=== PATIENT | female | born 1945 | race Caucasian/White ===

== ENCOUNTER 2021-02-04 11:37 | Day surgery (SDC) | payer MEDICARE, OTHER ==
[2021-01-30 09:33] LABS: BASOPHILS # (AUTO) 0.1 X10'3 (0-0.2); BASOPHILS % (AUTO) 0.8 % (0-1); EOSINOPHILS # (AUTO) 0.2 X10'3 (0-0.9); EOSINOPHILS % (AUTO) 3.8 % (0-6); HEMATOCRIT 37.1 % (35.0-45.0); HEMOGLOBIN 12.2 g/dl (12.0-16.0); LYMPHOCYTES # (AUTO) 2.1 X10'3 (1.1-4.8); LYMPHOCYTES % (AUTO) 33.5 % (21-51); MEAN CORPUSCULAR HEMOGLOBIN 30.1 PG (27.0-31.0); MEAN CORPUSCULAR HGB CONC 32.9 g/dL (33.0-36.5); MEAN CORPUSCULAR VOLUME 91.5 FL (78-98); MEAN PLATELET VOLUME 8.7 FL (7.4-10.4); MONOCYTES # (AUTO) 0.5 X10'3 (0-0.9); MONOCYTES % (AUTO) 8.5 % (2-12); NEUTROPHILS # (AUTO) 3.3 X10'3 (1.8-7.7); NEUTROPHILS % (AUTO) 53.4 % (42-75); PLATELET COUNT 275 X10'3 (140-440); RED BLOOD COUNT 4.06 X10'6 (4.20-5.60); RED CELL DISTRIBUTION WIDTH 12.9 % (11.5-14.5); WHITE BLOOD COUNT 6.2 X10'3 (4.5-11.0)
[2021-01-30 09:41] LABS: PARTIAL THROMBOPLASTIN TIME 24 SECONDS (22-32)
[2021-01-30 09:44] LABS: ALBUMIN 3.6 G/DL (3.4-5.0); ANION GAP 8 (8-16); BLOOD UREA NITROGEN 30 MG/DL (7-18); BUN/CREATININE RATIO 17.6 (6.6-38.0); CALCIUM 9.4 MG/DL (8.5-10.1); CHLORIDE 106 MMOL/L (99-107); GLUCOSE 105 MG/DL (70-104); SODIUM 141 MMOL/L (135-145); TOTAL CARBON DIOXIDE 26.9 MMOL/L (24-32); eGFR 29 ML/MIN
[~2021-02-04] VITALS: Ht 157.5 cm; Wt 59.7 kg
[2021-02-04] VITALS (9 sets, daily range): BP systolic 131–150; BP diastolic 53–69
[~2021-02-04 11:37] MED LIST: ASPI-611 PO; LACT1CAP64 PO; LORA1TAB PO; LOSA25TA41 PO; METO-395 PO; NIFE30TA8 PO; PANT-47 PO
[2021-02-04] MEDS ORDERED: normal saline 1,000 ML IV SCH (12:00)
[2021-02-04] MEDS ORDERED: diphenhydrAMINE 25mg capsule PO PRN (12:00)
[2021-02-04] MEDS ORDERED: LORazepam 0.5 MG tablet PO PRN (12:00)
[2021-02-04] MEDS ORDERED: VITAMIN D PO (12:11)
[2021-02-04] MEDS ORDERED: ALIR75PE (12:11)
[2021-02-04] MEDS ORDERED: OMEP-50 PO (12:11)
[2021-02-04] MEDS ORDERED: LIDOcaine 1% (10mg/ml)w/preservative injection 20ml MDV ONE (13:53)
[2021-02-04] MEDS ORDERED: verapamil 2.5 mg/ml inj IV ONE (13:53)
[2021-02-04] MEDS ORDERED: fentaNYL/PF 50MCG/1 ML 2ML syringe ONE (13:53)
[2021-02-04] MEDS ORDERED: midazolam 1 mg/ML 2ml injection ONE (13:53)
[2021-02-04] MEDS ORDERED: nitroGLYCERIN-Tridil 50MG/D5W 250 ML IV ONE (13:53)
[2021-02-04] MEDS ORDERED: iohexol 350MG/ML 100ml bottle IV ONE (13:54)
[2021-02-04] MEDS ORDERED: heparin 1,000unit/ml 10ml vial 10 ML ONE (13:54)
[2021-02-04] MEDS ORDERED: ondansetron/PF 4mg/2ml inj IV PRN (15:50)
[2021-02-04] MEDS ORDERED: proCHLORperazine 10 MG/2 ml inj IV PRN (15:50)
[2021-02-04] MEDS ORDERED: OXAZEpam 15mg capsule PO PRN (15:50)
== END 2021-02-04 18:30 | disposition home or self-care (01) ==
LOC: SSTAY O 11:37
PROVIDERS: ATTEND Internal Medicine Interventional Cardiology
DX: R94.39 Abnormal result of other cardiovascular function study (principal); R07.9 Chest pain, unspecified; I25.10 Atherosclerotic heart disease of native coronary artery without angina pectoris; I12.9 Hypertensive chronic kidney disease with stage 1 through stage 4 chronic kidney disease, or unspecified chronic kidney disease; N18.30 Chronic kidney disease, stage 3 unspecified; E78.5 Hyperlipidemia, unspecified; I25.2 Old myocardial infarction; Z79.82 Long term (current) use of aspirin; Z79.899 Other long term (current) drug therapy; Z95.1 Presence of aortocoronary bypass graft; Z87.891 Personal history of nicotine dependence; Z90.5 Acquired absence of kidney; Z88.8 Allergy status to other drugs, medicaments and biological substances; Z88.5 Allergy status to narcotic agent; Z91.041 Radiographic dye allergy status
CPT/HCPCS: 36415; 80048; 85025; 85610; 85730; 93005; 93459; 99152; C1769; J1644; J2001; J2250; J3010; J7030; Q0163; Q9967; 99153; A4620; A6258; J3490

== ENCOUNTER 2024-06-14 19:44 | Inpatient (IN) | payer MEDICARE, OTHER ==
[~2024-06-14] VITALS: Ht 154.9 cm; Wt 50.5 kg
[~2024-06-14 19:44] MED LIST changes: +ALIR75PE5; +AMI200T PO; -ASPI-611 PO; -LACT1CAP64 PO; -LOSA25TA41 PO; -NIFE30TA8 PO; +OMEP20CA16 PO; -PANT-47 PO; +VITAMIN D PO
[2024-06-14 21:06] LABS: BASOPHILS # (AUTO) 0.1 X10'3 (0-0.2); BASOPHILS % (AUTO) 0.5 % (0-1); EOSINOPHILS # (AUTO) 0.1 X10'3 (0-0.9); EOSINOPHILS % (AUTO) 0.6 % (0-6); HEMATOCRIT 36.7 % (35.0-45.0); HEMOGLOBIN 11.8 g/dl (12.0-16.0); LYMPHOCYTES # (AUTO) 2.2 X10'3 (1.1-4.8); MEAN CORPUSCULAR HEMOGLOBIN 30.5 PG (27.0-31.0); MEAN CORPUSCULAR HGB CONC 32.3 g/dL (33.0-36.5); MEAN CORPUSCULAR VOLUME 94.6 FL (78-98); MEAN PLATELET VOLUME 8.9 FL (7.4-10.4); MONOCYTES # (AUTO) 0.8 X10'3 (0-0.9); NEUTROPHILS # (AUTO) 8.5 X10'3 (1.8-7.7); NEUTROPHILS % (AUTO) 72.9 % (42-75); PLATELET COUNT 231 X10'3 (140-440); RED BLOOD COUNT 3.88 X10'6 (4.20-5.60); RED CELL DISTRIBUTION WIDTH 14.1 % (11.5-14.5); WHITE BLOOD COUNT 11.7 X10'3 (4.5-11.0)
[2024-06-14 21:08] LABS: D-DIMER 2.86 MG/L FEU (0-0.50)
[2024-06-14 21:18] LABS: ALBUMIN 3.7 G/DL (3.4-5.0); ANION GAP 11 (8-16); BLOOD UREA NITROGEN 27 MG/DL (7-18); BUN/CREATININE RATIO 12.7 (10.0-20.0); CALCIUM 9.2 MG/DL (8.5-10.1); CHLORIDE 103 MMOL/L (99-107); CREATININE 2.13 MG/DL (0.40-0.90); GLUCOSE 136 MG/DL (70-104); POTASSIUM 3.9 MMOL/L (3.5-5.1); PRO BRAIN NATRIURETIC PEPTIDE 6433 PG/ML (0-450); SODIUM 136 MMOL/L (135-145); TOTAL CARBON DIOXIDE 21.8 MMOL/L (24-32); eCRCL 17 ML/MIN; eGFR 22 ML/MIN
[2024-06-14] MEDS ORDERED: APIX5TAB3 PO (22:36)
[2024-06-14] MEDS ORDERED: ondansetron/PF 4mg/2ml inj IV PRN (23:30)
[2024-06-14] MEDS ORDERED: HYDROcodone/acetaminophen 5mg/325mg tablet PO PRN (23:30)
[2024-06-14] MEDS ORDERED: potassium Cl 40MEQ/1/2NS 520ml 520 ML IV PRN (23:30)
[2024-06-14] MEDS ORDERED: magnesium Cl slow-release 64mg tablet PO PRN (23:30)
[2024-06-14] MEDS ORDERED: magnesium sulf-water 2g/50mL 50 ML IV PRN (23:30)
[2024-06-14] MEDS ORDERED: magnesium sulf-water 4G/100mL 100 ML IV PRN (23:30)
[2024-06-14] MEDS ORDERED: acetaminophen 325mg tablet PO PRN (23:30)
[2024-06-14] MEDS ORDERED: mag hydrox/Alum hydrox/simeth 30ml oral suspension PO PRN (23:30)
[2024-06-14] MEDS ORDERED: potassium Cl 20 mEq SR tablet PO PRN ×2 (23:30)
[2024-06-15] VITALS (13 sets, daily range): BP systolic 136–160; BP diastolic 53–73; PULSE 62–84; RESP 15–22; TEMP 97–98.1; O2SAT 87–97
[2024-06-15] MEDS ORDERED: LORazepam 1 MG tablet PO PRN
[2024-06-15] MEDS: apixaban 2.5mg tablet PO SCH (00:59)
[2024-06-15] MEDS: methylPREDNISolone sod succ 125mg/2ml vial IV ONE (01:00)
[2024-06-15] MEDS: CefTRIAXone/D5W-Rocephin 1gm 50 ML IV SCH (01:00)
[2024-06-15] MEDS: azithromycin/NS 500mg/250ml 250 ML IV SCH (01:01)
[2024-06-15] MEDS: MESSAGE TO NURSING IV ONE ×4 (01:45→23:50)
[2024-06-15 02:30] LABS: BASOPHILS % (AUTO) 0.2 % (0-1); EOSINOPHILS % (AUTO) 0.1 % (0-6); HEMATOCRIT 37.6 % (35.0-45.0); HEMOGLOBIN 11.7 g/dl (12.0-16.0); LYMPHOCYTES # (AUTO) 0.8 X10'3 (1.1-4.8); LYMPHOCYTES % (AUTO) 6.4 % (21-51); MEAN CORPUSCULAR HEMOGLOBIN 30.5 PG (27.0-31.0); MEAN CORPUSCULAR HGB CONC 31.2 g/dL (33.0-36.5); MEAN CORPUSCULAR VOLUME 97.7 FL (78-98); MEAN PLATELET VOLUME 8.3 FL (7.4-10.4); MONOCYTES # (AUTO) 0.6 X10'3 (0-0.9); MONOCYTES % (AUTO) 4.5 % (2-12); NEUTROPHILS # (AUTO) 10.9 X10'3 (1.8-7.7); NEUTROPHILS % (AUTO) 88.8 % (42-75); PLATELET COUNT 195 X10'3 (140-440); RED BLOOD COUNT 3.85 X10'6 (4.20-5.60); RED CELL DISTRIBUTION WIDTH 14.8 % (11.5-14.5); WHITE BLOOD COUNT 12.3 X10'3 (4.5-11.0)
[2024-06-15] MEDS: heparin 25,000 UNIT/250ml bag 250 ML IV PRN (04:03)
[2024-06-15] MEDS: heparin 10,000 units/1 ML INJ IV ONE (04:07)
[2024-06-15] MEDS: normal saline 1000ml 1,000 ML IV ONE (04:10)
[2024-06-15] MEDS: acetaminophen 325mg tablet PO ONE (04:23)
[2024-06-15] MEDS: metoprolol succinate 25mg (24-HOUR) SR. Tablet PO SCH (07:11)
[2024-06-15] MEDS: pantoprazole 40mg Tablet.DR PO SCH (07:11)
[2024-06-15] MEDS: amiodarone 200mg tablet PO SCH (07:11)
[2024-06-15] MEDS: methylPREDNISolone sod succ/PF 40mg inj. IV SCH (07:11)
[2024-06-15] MEDS ORDERED: ipratropium/albuterol 3ml nebule NEB PRN (07:25)
[2024-06-15] MEDS: normal saline 1000ml 1,000 ML IV SCH (07:43)
[2024-06-15] MEDS: acetaminophen 325mg tablet PO PRN (07:43)
[2024-06-15] MEDS: K and/or MAG REPLACEMENT MC SCH (08:00)
[2024-06-15] MEDS: ipratropium/albuterol 3ml nebule NEB SCH (08:42)
[2024-06-15 11:14] LABS: ALBUMIN 3.3 G/DL (3.4-5.0); ANION GAP 16 (8-16); BLOOD UREA NITROGEN 29 MG/DL (7-18); BUN/CREATININE RATIO 12.8 (10.0-20.0); CALCIUM 8.8 MG/DL (8.5-10.1); CHLORIDE 101 MMOL/L (99-107); CREATININE 2.26 MG/DL (0.40-0.90); GLUCOSE 208 MG/DL (70-104); PHOSPHORUS 4.4 MG/DL (2.3-4.5); POTASSIUM 4.9 MMOL/L (3.5-5.1); SODIUM 136 MMOL/L (135-145); TOTAL CARBON DIOXIDE 19.4 MMOL/L (24-32); eCRCL 16 ML/MIN; eGFR 21 ML/MIN
[2024-06-15 13:32] LABS: BILIRUBIN,URINE NEGATIVE (Neg); CLARITY,URINE CLEAR (Clear); COLOR,URINE YELLOW (Yellow); GLUCOSE, URINE NEGATIVE (Neg); KETONES,URINE NEGATIVE (Neg); LEUKOCYTE ESTERASE ,URINE NEGATIVE (Neg); NITRITES, URINE NEGATIVE (Neg); OCCULT BLOOD,URINE NEGATIVE (Neg); PROTEIN,URINE NEGATIVE (Neg); UROBILINOGEN,URINE 0.2 E.U/dL (0.2-1.0)
[2024-06-15] MEDS: LORazepam 0.5 MG tablet PO PRN (13:33)
[2024-06-15 13:39] LABS: INR 1.4 INR; PROTHROMBIN TIME 14.7 SECONDS (9.0-12.0)
[2024-06-15 13:44] LABS: UA COLLECTION TYPE NON-SPECIFIED
[2024-06-15] MEDS ORDERED: ondansetron 4mg rapidly disintigrating tab PO PRN (15:00)
[2024-06-15 16:07] LABS: ALANINE AMINOTRANSFERASE 96 U/L (12-78); ALBUMIN 3.5 G/DL (3.4-5.0); ALBUMIN/GLOBULIN RATIO 0.9 (1.1-1.5); ALKALINE PHOSPHATASE 108 IU/L (46-116); ASPARTATE AMINO TRANSFERASE 135 U/L (10-37); BILIRUBIN,DIRECT 0.3 MG/DL (0-0.3); BILIRUBIN,TOTAL 0.6 MG/DL (0.1-1.0); TOTAL PROTEIN 7.4 G/DL (6.4-8.2)
[2024-06-15] MEDS: heparin 10,000 units/1 ML INJ IV PRN (23:54)
[2024-06-16] VITALS (13 sets, daily range): BP systolic 140–155; BP diastolic 66–72; PULSE 68–97; RESP 14–22; TEMP 96.7–98.1; O2SAT 86–96
[2024-06-16 07:44] LABS: BASOPHILS % (AUTO) 0.1 % (0-1); EOSINOPHILS % (AUTO) 0 % (0-6); HEMATOCRIT 33.7 % (35.0-45.0); HEMOGLOBIN 10.8 g/dl (12.0-16.0); LYMPHOCYTES # (AUTO) 0.7 X10'3 (1.1-4.8); LYMPHOCYTES % (AUTO) 3.4 % (21-51); MEAN CORPUSCULAR HEMOGLOBIN 30.7 PG (27.0-31.0); MEAN CORPUSCULAR VOLUME 95.8 FL (78-98); MEAN PLATELET VOLUME 10.3 FL (7.4-10.4); MONOCYTES # (AUTO) 0.9 X10'3 (0-0.9); MONOCYTES % (AUTO) 4.2 % (2-12); NEUTROPHILS # (AUTO) 19.8 X10'3 (1.8-7.7); NEUTROPHILS % (AUTO) 92.3 % (42-75); PLATELET COUNT 205 X10'3 (140-440); RED BLOOD COUNT 3.51 X10'6 (4.20-5.60); RED CELL DISTRIBUTION WIDTH 14.6 % (11.5-14.5); WHITE BLOOD COUNT 21.4 X10'3 (4.5-11.0)
[2024-06-16 07:55] LABS: ALBUMIN 3.2 G/DL (3.4-5.0); ANION GAP 16 (8-16); BLOOD UREA NITROGEN 31 MG/DL (7-18); BUN/CREATININE RATIO 16.4 (10.0-20.0); CALCIUM 8.8 MG/DL (8.5-10.1); CHLORIDE 101 MMOL/L (99-107); CHOLESTEROL 112 MG/DL (0-200); CREATININE 1.89 MG/DL (0.40-0.90); GLUCOSE 253 MG/DL (70-104); HDL CHOLESTEROL 56 MG/DL (35-60); LDL CHOLESTEROL 47 MG/DL (50-100); MAGNESIUM 1.8 MG/DL (1.5-2.4); PHOSPHORUS 3.1 MG/DL (2.3-4.5); SODIUM 135 MMOL/L (135-145); TOTAL CARBON DIOXIDE 17.9 MMOL/L (24-32); TRIGLYCERIDES 102 MG/DL (20-135); eCRCL 19 ML/MIN; eGFR 26 ML/MIN
[2024-06-16 07:57] LABS: POTASSIUM 4.4 MMOL/L (3.5-5.1)
[2024-06-16] MEDS: metoprolol succinate 25mg (24-HOUR) SR. Tablet PO SCH (07:59)
[2024-06-16] MEDS: atorvastatin 20mg tablet PO SCH (07:59)
[2024-06-16] MEDS: MESSAGE TO NURSING IV ONE ×2 (11:35→19:23)
[2024-06-17 02:00] VITALS: BP 162/77; PULSE 69; RESP 19; TEMP 97.4; O2SAT 94
[2024-06-17] MEDS: MESSAGE TO NURSING IV ONE (03:17)
[2024-06-17 06:00] VITALS: BP 155/72; PULSE 83; RESP 15; TEMP 97.7; O2SAT 94
[2024-06-17 06:47] LABS: BASOPHILS % (AUTO) 0 % (0-1); EOSINOPHILS % (AUTO) 0 % (0-6); HEMATOCRIT 33.9 % (35.0-45.0); HEMOGLOBIN 11.1 g/dl (12.0-16.0); LYMPHOCYTES # (AUTO) 0.8 X10'3 (1.1-4.8); LYMPHOCYTES % (AUTO) 4.1 % (21-51); MEAN CORPUSCULAR HEMOGLOBIN 31.3 PG (27.0-31.0); MEAN CORPUSCULAR HGB CONC 32.8 g/dL (33.0-36.5); MEAN CORPUSCULAR VOLUME 95.4 FL (78-98); MEAN PLATELET VOLUME 9.9 FL (7.4-10.4); MONOCYTES # (AUTO) 0.6 X10'3 (0-0.9); MONOCYTES % (AUTO) 3.3 % (2-12); NEUTROPHILS % (AUTO) 92.6 % (42-75); PLATELET COUNT 228 X10'3 (140-440); RED BLOOD COUNT 3.55 X10'6 (4.20-5.60); RED CELL DISTRIBUTION WIDTH 14.5 % (11.5-14.5); WHITE BLOOD COUNT 19.5 X10'3 (4.5-11.0)
[2024-06-17 06:54] LABS: ALBUMIN 3.3 G/DL (3.4-5.0); ANION GAP 12 (8-16); BLOOD UREA NITROGEN 40 MG/DL (7-18); BUN/CREATININE RATIO 19.2 (10.0-20.0); CALCIUM 8.9 MG/DL (8.5-10.1); CHLORIDE 105 MMOL/L (99-107); CREATININE 2.08 MG/DL (0.40-0.90); GLUCOSE 123 MG/DL (70-104); MAGNESIUM 1.9 MG/DL (1.5-2.4); PHOSPHORUS 2.9 MG/DL (2.3-4.5); POTASSIUM 4.5 MMOL/L (3.5-5.1); SODIUM 137 MMOL/L (135-145); TOTAL CARBON DIOXIDE 19.9 MMOL/L (24-32); eCRCL 17 ML/MIN; eGFR 23 ML/MIN
[2024-06-17 07:11] LABS: INR 1.2 INR; PROTHROMBIN TIME 12.4 SECONDS (9.0-12.0)
[2024-06-17 07:16] VITALS: PULSE 67; RESP 16; O2SAT 92
[2024-06-17 07:27] VITALS: PULSE 67; RESP 18
[2024-06-17 08:00] VITALS: RESP 16; O2SAT 96
[2024-06-17] MEDS: apixaban 5mg tablet PO SCH (09:36)
[2024-06-17] MEDS: clopidogrel 75mg tablet PO SCH (09:36)
[2024-06-17] MEDS ORDERED: PRED10TA23 PO (10:05)
[2024-06-17] MEDS ORDERED: CEFD300C3 PO (10:05)
[2024-06-17] MEDS ORDERED: BUDE10.2 INH (10:05)
[2024-06-17] MEDS ORDERED: ALBU8HFA INH (10:05)
[2024-06-17] MEDS ORDERED: LOP25T PO (10:05)
[2024-06-17] MEDS ORDERED: CLOP75TA34 PO (10:05)
[2024-06-17] MEDS ORDERED: LACT1CAP26 PO (10:05)
== END 2024-06-17 11:29 | disposition home health service (06) | DRG 280 ==
LOC: ER 19:44 → ED HOLD 23:31 → PCU 3S 06-15 06:12
PROVIDERS: ADMIT Surgery; ATTEND Family Medicine
PROC: CB121ZZ Planar Nuclear Medicine Imaging of Lungs and Bronchi using Technetium 99m (Tc-99m) (ICD-10-PCS; principal; 2024-06-14)
DX: I21.4 Non-ST elevation (NSTEMI) myocardial infarction (principal); J96.01 Acute respiratory failure with hypoxia; N17.0 Acute kidney failure with tubular necrosis; I13.0 Hypertensive heart and chronic kidney disease with heart failure and stage 1 through stage 4 chronic kidney disease, or unspecified chronic kidney disease; J44.1 Chronic obstructive pulmonary disease with (acute) exacerbation; E87.20 Acidosis, unspecified; I50.22 Chronic systolic (congestive) heart failure; E78.5 Hyperlipidemia, unspecified; I25.10 Atherosclerotic heart disease of native coronary artery without angina pectoris; I48.0 Paroxysmal atrial fibrillation; I73.9 Peripheral vascular disease, unspecified; N18.9 Chronic kidney disease, unspecified; Z79.01 Long term (current) use of anticoagulants; Z79.02 Long term (current) use of antithrombotics/antiplatelets; Z79.899 Other long term (current) drug therapy; Z80.8 Family history of malignant neoplasm of other organs or systems; Z87.891 Personal history of nicotine dependence; Z95.1 Presence of aortocoronary bypass graft; Z80.0 Family history of malignant neoplasm of digestive organs; Z90.49 Acquired absence of other specified parts of digestive tract; Z88.5 Allergy status to narcotic agent
CPT/HCPCS: 36415; 71045; 71250; 78582; 80048; 80061; 80076; 81003; 82570; 83605; 83735; 83880; 83930; 83935; 84100; 84132; 84145; 84300; 84484; 85025; 85379; 85610; 85651; 85730; 87040; 87081; 92960; 93005; 93306; 94640; 94760; 97116; 97161; 97530; 99285; A4333; A6258; A9539; A9540; G0378; J0456; J0696; J1644; J2250; J2919; J3010; J7030

== ENCOUNTER 2025-06-26 08:29 | Day surgery (SDC) | payer MEDICARE, OTHER ==
[2025-06-22 08:35] LABS: MEAN PLATELET VOLUME 7.9 FL (7.4-10.4); RED CELL DISTRIBUTION WIDTH 18.2 % (11.5-14.5)
[2025-06-22 08:43] LABS: CREATININE 1.89 MG/DL (0.40-0.90); TOTAL CARBON DIOXIDE 27.3 MMOL/L (24-32); eGFR 26 ML/MIN
[2025-06-22 08:47] LABS: APTT 26 SECONDS (22-32); INR 1.1 INR
[~2025-06-26] VITALS: Ht 154.9 cm; Wt 49.4 kg
[~2025-06-26 08:29] MED LIST changes: -AMI200T PO; +APIX5TAB3 PO; +CARV6.253 PO; +GABA-530 PO; +LOSA25TA41 PO; -METO-395 PO; -VITAMIN D PO
[2025-06-26 09:03] VITALS: BP 134/98; RESP 16; TEMP 97.6; O2SAT 95
[2025-06-26] MEDS ORDERED: normal saline 1000ml 1,000 ML IV SCH (09:35)
[2025-06-26] MEDS ORDERED: MIDAZolam 1mg/ml 10ml vial IV ONE (09:35)
[2025-06-26] MEDS ORDERED: fentaNYL/PF 50MCG/1 ML 2ML syringe IV ONE (09:35)
[2025-06-26 10:00] VITALS: BP 134/98; PULSE 116; RESP 16; O2SAT 95
[2025-06-26] MEDS ORDERED: fentaNYL/PF 50MCG/1 ML 2ML syringe ONE (11:52)
[2025-06-26] MEDS ORDERED: midazolam 1 mg/ML 2ml injection ONE (11:52)
[2025-06-26] MEDS ORDERED: atropine 0.1mg/ml 10ml syringe ONE (12:10)
[2025-06-26 13:24] VITALS: BP 139/76; PULSE 85; RESP 14; O2SAT 94
[2025-06-26 13:40] VITALS: BP 130/74; PULSE 80; RESP 14; O2SAT 93
--- NOTE | 2025-06-26 13:44 | ELECTROCARDIOGRAPH REPORT ---
[facility] [place] Test Date: 2025-06-26 Test Time: 13:42:51 Pat Name: COLETTE GARCÍA Department: [facility] Patient ID: [facility]-[id number] Room: Gender: F Cardiac Monitor: MELLY : 1945 Requested By: BUNNY BAEZA Order Number: [id number] Reading MD: Dr. CUONG Littlejohn Measurements Intervals [place] Rate: 82 P: 59 GA: 185 QRS: -39 QRSD: 107 T: -13 QT: 434 QTc: 507 Interpretive Statements Sinus rhythm LVH with secondary repolarization abnormality Prolonged QT interval Baseline wander in lead(s) V6 Electronically Signed On 06-27-2025 18:01:[address] CUONG Littlejohn Please click the below link to view image of tracing.
[2025-06-26 13:50] VITALS: BP 136/82; PULSE 82; RESP 14; O2SAT 97
== END 2025-06-26 14:10 | disposition home or self-care (01) ==
LOC: SSTAY O 08:29
PROVIDERS: ATTEND Student in an Organized Health Care Education/Training Program
DX: I48.0 Paroxysmal atrial fibrillation (principal); R94.31 Abnormal electrocardiogram [ECG] [EKG]; I25.10 Atherosclerotic heart disease of native coronary artery without angina pectoris; E78.00 Pure hypercholesterolemia, unspecified; I50.9 Heart failure, unspecified; N18.30 Chronic kidney disease, stage 3 unspecified; I25.2 Old myocardial infarction; I73.9 Peripheral vascular disease, unspecified; Z79.01 Long term (current) use of anticoagulants; Z79.899 Other long term (current) drug therapy; Z90.5 Acquired absence of kidney; Z88.2 Allergy status to sulfonamides; Z88.5 Allergy status to narcotic agent; Z91.041 Radiographic dye allergy status
CPT/HCPCS: 36415; 80048; 85025; 85610; 85730; 92960; 93005; A4663; A6258; J0461; J2250; J3010; J7030; 99152; 99153